=== PATIENT | male | born 1975 | race Two or more races ===

== ENCOUNTER 2018-03-11 14:06 | Inpatient (IN) | payer MEDICAID ==
[2018-03-11 14:06] VITALS: BMI 27.3
--- NOTE | 2018-03-11 16:00 | C.PDOC ---
History Of Present Illness 43 year old male presents to the ED with mother requesting alcohol detox. Patient denies any past medical history and offers no medical complaints at this time. Time Seen by Provider: 03/11/18 15:50 Chief Complaint (Nursing): Substance Abuse History Per: Patient History/Exam Limitations: no limitations Onset/Duration Of Symptoms: Hrs Current Symptoms Are (Timing): Still Present Modifying Factor(s): Alcohol Involuntary Hold By: None Recent travel outside of the [place]: No Additional History Per: Patient Past Medical History Reviewed: Historical Data, Nursing Documentation, Vital Signs Vital Signs: Last Vital Signs Temp 98.7 F 03/11/18 14:50 Pulse 97 H 03/11/18 14:50 Resp 18 03/11/18 14:50 BP 132/93 H 03/11/18 14:50 Pulse Ox 96 03/11/18 14:50 - Medical History PMH: HTN Denies: Anxiety, Bipolar Disorder, Depression, Personality Disorder, Post Traumatic Stress Disorder, Schizophrenia Surgical History: No Surg Hx Denies: Pacemaker - [employer] [facility] Procedures INJECT/INFUSE NEC (03/09/14) Family History: States: Unknown Family Hx - Social History Hx Alcohol Use: Yes Hx Substance Use: No - Immunization History Hx Tetanus Toxoid Vaccination: No Hx Influenza Vaccination: No Hx Pneumococcal Vaccination: No Review Of Systems Psych: Positive for: Other (alcohol detox ) Physical Exam - Physical Exam Appears: Non-toxic, No Acute Distress, Other (loud and belligerant) Skin: Normal Color, Warm, Dry Oral Mucosa: Moist Neck: Supple Chest: Symmetrical, No Deformity, No Tenderness Cardiovascular: Rhythm Regular, No Murmur Respiratory: Normal Breath Sounds, No Rales, No Rhonchi, No Wheezing Gastrointestinal/Abdominal: Soft, No Tenderness, No Guarding, No Rebound Extremity: Normal ROM Neurological/Psych: Oriented x3, Normal Speech, Normal Cognition ED Course And Treatment - Laboratory Results Result Diagrams: 03/11/18 16:28 03/11/18 16:28 O2 Sat by Pulse Oximetry: 96 (on RA ) Pulse Ox Interpretation: Normal Medical Decision Making Medical Decision Making: Progress: Bloodwork and urinalysis ordered and reviewed. Disposition Counseled Patient/Family Regarding: Studies Performed, Diagnosis - Disposition Disposition: HOSPITALIZED Disposition Time: 17:34 Condition: STABLE Forms: [employer] (Malaysian) - Clinical Impression Clinical Impression: Drug abuse, Alcohol abuse - Scribe Statement The provider has reviewed the documentation as recorded by the Scribe (Leticia Henley) Provider Attestation: All medical record entries made by the Scribe were at my direction and personally dictated by me. I have reviewed the chart and agree that the record accurately reflects my personal performance of the history, physical exam, medical decision making, and the department course for this patient. I have also personally directed, reviewed, and agree with the discharge instructions and disposition. Decision To Admit - Pt Status Changed To: Hospital Disposition Of: Inpatient - Admit Certification Admit to Inpatient:: After my assessment, the patient will require hospitalization for at least two midnights. This is because of the severity of symptoms shown, intensity of services needed, and/or the medical risk in this patient being treated as an outpatient. - InPatient: Physician Admission Certification: I certify that this patient requires 2 or more midnights of care for the following reason:: needs inpatient detox - . Bed Request Type: Detox Patient Diagnosis: Drug abuse, Alcohol abuse
[2018-03-11 16:32] LABS: BASO % 0.3 % (0.0-2.0); EOS % 0.8 % (0.0-4.0); HEMOGLOBIN 13.2 g/dL (12.0-18.0); LYMPH # 1.8 K/uL (1.0-4.3); LYMPH % 40.9 % (20.0-40.0); MEAN CELL VOLUME 88.4 fL (80.0-94.0); MEAN CORPUSCULAR HEMOGLOBIN 29.5 pg (27.0-31.0); MEAN CORPUSCULAR HGB CONC 33.4 g/dL (33.0-37.0); MONO # 0.2 K/uL (0.0-0.8); MONO % 5.2 % (0.0-10.0); NEUT # 2.3 K/uL (1.8-7.0); NEUT % 52.8 % (50.0-75.0); NRBC % 0.2 % (0.0-2.0); RBC 4.48 Mil/uL (4.40-5.90); RED CELL DISTRIBUTION WIDTH 16.3 % (11.5-14.5); WHITE BLOOD COUNT 4.4 K/uL (4.8-10.8)
[2018-03-11 16:38] LABS: SQUAMOUS EPITHIAL 5 /hpf (0-5); URINE BACTERIA MANY (<OCC); URINE BILIRUBIN NEGATIVE (NEGATIVE); URINE BLOOD 1+ (NEGATIVE); URINE CLARITY Hazy (Clear); URINE COLOR Yellow (YELLOW); URINE GLUCOSE (UA) NORMAL (Normal); URINE LEUKOCYTE ESTERASE 2+ Leu/uL (Negative); URINE PROTEIN NEGATIVE (NEGATIVE); URINE UROBILINOGEN NORMAL mg/dL (0.2-1.0)
[2018-03-11 16:50] LABS: BARBITURATES, UR NEGATIVE (NEGATIVE); BENZODIAZEPINES, UR NEGATIVE (NEGATIVE); OPIATES, UR NEGATIVE (NEGATIVE)
[2018-03-11 16:56] LABS: PHENCYCLIDINE, UR POSITIVE (NEGATIVE)
[2018-03-11 16:59] LABS: ALB/GLOB RATIO 1.5 (1.0-2.1); ALBUMIN 4.3 g/dL (3.5-5.0); ALT/SGPT 38 U/L (21-72); AST/SGOT 84 U/L (17-59); BLOOD UREA NITROGEN 10 mg/dL (9-20); CALCIUM 8.3 mg/dl (8.6-10.4); GFR NON-AFRICAN AMERICAN > 60
--- NOTE | 2018-03-11 19:10 | PCM.BM ---
<Adrian Bales - Last Filed: 03/11/18 20:46> Treatment Plan Problems - Problems identified on initial assessmt anxiety r/t substance abuse Date Initiated: 03/11/18 Time Initiated: 19:09 Assessment reference: NA Status: Active altered health maintenance Date Initiated: 03/11/18 Time Initiated: 20:49 Assessment reference: NA Status: Active defensive coping Date Initiated: 03/11/18 Time Initiated: 20:49 Assessment reference: NA Status: Active knowledge deficits r/t alcohol use Date Initiated: 03/11/18 Time Initiated: 20:50 Assessment reference: NA Status: Active Treatment assets and liabiliti Patient Assests: cooperative, ADL independent, good support system, cognitively intact Patient Liabilities: substance abuse - Milieu Protocol Maintain good personal hygiene: daily Encourage regular showers, daily Remind patient to perform daily oral care, daily Assist patient to perform ADL's Maintain personal safety: every shift Educate patient to report safety concerns to staff, every shift Monitor environment for contraband/sharps Medication safety: Monitor for expected outcome, potential side effects: every shift, Assess barriers to learning: every shift, Assess readiness for medication education: every shift <Tyson Herrera - Last Filed: 03/12/18 15:34> - Diagnosis (1) Alcohol use disorder, severe, dependence Status: Acute Interventions: 03/12/18 15:34 * Assess 7x/week regarding severity of withdrawal * Educate regarding risks, benefits, side effects and alternatives of medications * Use Motivational Interviewing for abstinence * Use CBT for relapse prevention * Medication management for withdrawal symptoms * Encourage medication assisted treatment (2) Cannabis use disorder, mild, abuse Status: Acute Interventions: 03/12/18 15:34 * Assess 7x/week regarding severity of withdrawal * Educate regarding risks, benefits, side effects and alternatives of medications * Use Motivational Interviewing for abstinence * Use CBT for relapse prevention * Medication management for withdrawal symptoms * Encourage medication assisted treatment <Jamila Reese - Last Filed: 03/13/18 14:52> Treatment Plan Problems - Problems identified on initial assessmt anxiety r/t substance abuse Date Initiated: 03/11/18 Time Initiated: 19:09 Assessment reference: NA Status: Active altered health maintenance Date Initiated: 03/11/18 Time Initiated: 20:49 Assessment reference: NA Status: Active defensive coping Date Initiated: 03/11/18 Time Initiated: 20:49 Assessment reference: NA Status: Active knowledge deficits r/t alcohol use Date Initiated: 03/11/18 Time Initiated: 20:50 Assessment reference: NA Status: Active potential for alcohol withdrawal Date Initiated: 03/11/18 Time Initiated: 19:09 Assessment reference: NA Status: Active Family Contact Family involvement: Family/SO is involved Family contact name: girlfriend Family contacted how many times per week?: 1 - Goals for Treatment Patient goals for treatment: Complete detox and transition to a short-term rehab. Discharge/Continuing Care - Education Needs Education Needs: Patient Medication, Patient Diagnosis/Disease Process, Patient Coping Skills, Patient Anger Management skills, Patient Placement options, Patient Community resources, Significant Other Diagnosis/Disease Process, Significant Other Community resources - Discharge Discharge Criteria: Free of agitation, No longer exhibiting s/s of withdrawal, Reduction of target symptoms Discharge to:: Substance Abuse Rehab - Treatment Team Participation Patient/Family/SO Statement: 03/13/18 14:51 "I wanna got To [facility] if I COULD..." Discussed with Family/SO: No Was Patient/Family/SO present at Treatment Team Meeting: Yes
[2018-03-12] MEDS: Multiple Vitamins Tab PO SCH (11:28)
--- NOTE | 2018-03-12 15:39 | PCM.PSYCH ---
Initial Psychiatric Evaluation - Initial Psychiatric Evaluation Type of Admission: Voluntary Legal Status: Capacity Chief Complaint (in patient's own words): I need help from his substance use. History of Present Illness and Precipitating Events: Patient is a 43 years old, single, unemployed, -[place] male with no previous psychiatric history was admitted due to withdrawing from alcohol and cannabis. Alcohol: Patient started drinking alcohol at 25 years of age increased gradually. From age 35 patient started drinking on daily basis, was drinking 2-3 pints of beer daily. His last drink of alcohol was yesterday. Denied any prev ious detox or rehabs. Cannabis: Started at 17 years of age, using once a month. Last used one month ago. Urine drug screen was also positive for PCP. Patient reported he used only once. Next Denied use of any other drugs including cocaine and heroin. Denied smoking cigarettes. Patient has history of left leg surgery. was born in [place], has 2 years of college. Patient is working. Never and has 118 years old daughter who lives with her mother. Patient lives alone. His height is 5 feet 9 inches and weight is 175 pounds. Current Medications: Active Medications Generic Name Dose Route Start Last Admin Trade Name Freq PRN Reason Stop Dose Admin Al Hydrox/Mg Hydrox/Simethicone 30 ml 03/12/18 10:11 Maalox 30 Ml PO TID PRN Indigestion / Heartburn Ciprofloxacin 500 mg 03/12/18 18:00 Cipro PO 03/17/18 10:00 BID JANKI Protocol Clonidine HCl 0.1 mg 03/11/18 20:29 03/12/18 09:09 Catapres PO 0.1 mg Q6 PRN Administration Symptoms of alcohol withdrawl Dicyclomine HCl 10 mg 03/11/18 18:00 Bentyl PO Q6 PRN Muscle spasm Folic Acid 1 mg 03/12/18 10:30 03/12/18 11:27 Folic Acid PO 1 mg DAILY JANKI Administration Gabapentin 400 mg 03/12/18 14:00 03/12/18 13:26 Neurontin PO 400 mg TID JANKI Administration Hydroxyzine HCl 50 mg 03/11/18 18:00 03/11/18 18:45 Atarax PO 50 mg Q6 PRN Administration Anxiety Ibuprofen 600 mg 03/11/18 17:59 Motrin Tab PO Q6 PRN Pain, moderate (4-7) Lorazepam 1 mg 03/11/18 18:40 03/12/18 09:10 Ativan PO 1 mg Q6 PRN Administration alcohol withdrawal Multivitamins 1 tab 03/12/18 10:30 03/12/18 11:28 Hexavitamin PO 1 tab DAILY JANKI Administration Ondansetron HCl 4 mg 03/11/18 18:02 Zofran Tab PO Q6 PRN Nausea/Vomiting Thiamine HCl 100 mg 03/12/18 10:30 03/12/18 11:27 Vitamin B1 Tab PO 100 mg DAILY AJNKI Administration Trazodone HCl 50 mg 03/11/18 17:58 03/11/18 23:27 Desyrel PO 50 mg HS PRN Administration Insomnia Past Psychiatric History - Past Psychiatric History Previous Treatment History: None History of Abuse: None reported History of ETOH/Drug Use: See HPI History of Family Illness: None reported Pertinent Medical Hx (Current Medical&Sleep Prob, Allergies): Allergies Allergy/AdvReac Type Severity Reaction Status Date / Time No Known Allergies Allergy Verified 03/11/18 14:53 amLODIPine [Norvasc] 10 mg PO DAILY 09/25/17 Hypertension Review of Systems - Psychiatric Psychiatric: As Per HPI, Anxiety Mental Status Examination - Personal Presentation Personal Presentation: Looks stated age - Affect Affect: Other (Appropriate) - Motor Activity Motor Activity: Calm - Reliability in Providing Information Reliability in Providing Information: Fair - Speech Speech: Organized - Mood Mood: Anxious - Formal Thought Process Formal Thought Process: No Impairment - Hallucinations/Delusions Hallucinations: Other (None reported) Delusions: Other - Obsessions/Compulsions Obsessions: None Compulsions: None - Cognitive Functions Orientation: Person, Place - Risk Risk: Withdrawal, Diminished functioning - Strength & Assets Inventory Strength & Assets Inventory: Cooperative - Limitations Limitations: Living alone DSM 5 DX - DSM 5 DSM 5 Diagnosis: Alcohol withdrawal. Alcohol use disorder severe. Cannabis use disorder mild - Recommended/Plan of Treatment Treatment Recommendations and Plan of Treatment: Patient education. Supportive therapy. CBT for relapse prevention. MD for abstinence. We will start Ativan taper for alcohol withdrawal symptoms. Other when necessary medications. Ciprofloxacin for UTI. Patient wants to go to [facility] for follow-up care after discharge from the hospital. Projected ELOS: 4-5 days - Smoking Cessation Smoking Cessation Initiated: No Reason for not providing: Patient doesn't smoke cigarettes
[2018-03-12] MEDS: Aluminum Hydroxide/Magnesium Hydroxide Susp (30 mL) PO PRN (20:04)
[2018-03-13] MEDS: Multiple Vitamins Tab PO SCH (08:59)
[2018-03-13] MEDS: Aluminum Hydroxide/Magnesium Hydroxide Susp (30 mL) PO PRN ×2 (09:23→17:51)
--- NOTE | 2018-03-13 15:56 | PCM.PYCHPN ---
Psychiatric Progress Note - Psychiatric Progress Note Patient seen today, length of contact: 15 minutes Patient Chief Complaint: I'm feeling little better. Problems Identified/Issues Discussed: Patient seen, chart reviewed, case discussed with the staff. Issues related to illness and treatment were discussed with the patient and staff. Reported compliant with treatment with no adverse effect. Calm and cooperative. Reported feeling little better. Still has some withdrawal symptoms including shaking, sweating, body aches and headache. Awake, alert and oriented x3. Mood reported as anxious. Affect appropriate. Memory intact. Aftercare discussed with the patient. Denied any delusions, auditory or visual hallucinations, suicidal ideations or homicidal ideations at the time of evaluation. Medical Problems: Hypertension Diagnostic Results: Reviewed DSM 5 Symptoms Update: Some improvement with treatment. Medication Change: No Medical Record Reviewed: Yes Mental Status Examination - Cognitive Function Orientation: Person, Place, Situation, Time Memory: Intact Attention: WNL Concentration: WNL Association: [facility] Fund of Knowledge: [facility] Decription of patient's judgement and insights: Fair - Mood Mood: Anxious (Less than before) - Affect Affect: Other (Appropriate) - Speech Speech: Appropriate - Formal Thought Process Formal Thought Process: No Impairment Psychotic Thoughts and Behaviors: None - Suicidal Ideation Suicidal Ideation: No - Homicidal Ideation Homicidal Ideation: No Goal/Treatment Plan - Goal/Treatment Plan Need for Continued Stay: Remain at risks for inpatient hospitalization, Discharge may exacerbated symptoms, Severe functional impairment Progress Toward Problem(s) and Goals/Treatment Plan: Patient education. Supportive therapy. CBT for relapse prevention. [place] for abstinence. Continue treatment as before. Patient wants to go to [facility] for follow-up care after discharge from the hospital. Estimated Date of D/C: 03/15/18 - Smoking Cessation Smoking Cessation Initiated: No
[2018-03-13] MEDS ORDERED: Magnesium Hydroxide Susp 30 ml UD PO ONE (18:06)
--- NOTE | 2018-03-13 21:06 | RAD ---
HISTORY: rehab placement COMPARISON: No prior. TECHNIQUE: Chest PA and lateral FINDINGS: LUNGS: No focal consolidation. Please note that chest x-ray has limited sensitivity for the detection of pulmonary masses. PLEURA: No significant pleural effusion identified. No definite pneumothorax . CARDIOVASCULAR: Heart size appears within normal limits. No atherosclerotic calcification present. OSSEOUS STRUCTURES: No acute osseous abnormality identified. VISUALIZED UPPER ABDOMEN: Unremarkable. OTHER FINDINGS: None. IMPRESSION: No focal consolidation.
[2018-03-14] MEDS: Aluminum Hydroxide/Magnesium Hydroxide Susp (30 mL) PO PRN (08:58)
[2018-03-14] MEDS: Multiple Vitamins Tab PO SCH (09:18)
[2018-03-14] MEDS: Potassium Chloride 20 mEq ER Tab PO SCH (12:18)
[2018-03-14] MEDS ORDERED: Magnesium Hydroxide Susp 30 ml UD PO PRN (17:01)
--- NOTE | 2018-03-14 22:35 | PCM.PYCHPN ---
Psychiatric Progress Note - Psychiatric Progress Note Patient seen today, length of contact: 15 minutes Patient Chief Complaint: I'm feeling better. Problems Identified/Issues Discussed: Patient seen, chart reviewed, case discussed with the staff. Issues related to illness and treatment were discussed with the patient and staff. Reported compliant with treatment with no adverse effect. Calm and cooperative. Reported feeling better. His serum potassium was low. Patient received 40 M EQ of K-Dur. Will repeat potassium in the morning. Awake, alert and oriented x3. Mood reported as anxious. Affect appropriate. Memory intact. Aftercare discussed with the patient. Denied any delusions, auditory or visual hallucinations, suicidal ideations or homicidal ideations at the time of evaluation. Medical Problems: Hypertension Diagnostic Results: Reviewed DSM 5 Symptoms Update: Improving with treatment. Medication Change: No Medical Record Reviewed: Yes Mental Status Examination - Cognitive Function Orientation: Person, Place, Situation, Time Memory: Intact Attention: WNL Concentration: WNL Association: WNL Fund of Knowledge: [facility]N Decription of patient's judgement and insights: Fair - Mood Mood: Anxious (Much less than before) - Affect Affect: Other (Appropriate) - Speech Speech: Appropriate - Formal Thought Process Formal Thought Process: No Impairment Psychotic Thoughts and Behaviors: None - Suicidal Ideation Suicidal Ideation: No - Homicidal Ideation Homicidal Ideation: No Goal/Treatment Plan - Goal/Treatment Plan Need for Continued Stay: Remain at risks for inpatient hospitalization, Discharge may exacerbated symptoms, Severe functional impairment Progress Toward Problem(s) and Goals/Treatment Plan: Patient education. Supportive therapy. CBT for relapse prevention. [place] for abstinence. Continue treatment as before. Patient wants to go to [facility] for follow-up care after discharge from the hospital. Estimated Date of D/C: 03/15/18 - Smoking Cessation Smoking Cessation Initiated: No
[2018-03-15] MEDS: Multiple Vitamins Tab PO SCH (09:29)
[2018-03-15] MEDS: Potassium Chloride 20 mEq ER Tab PO SCH (09:30)
[2018-03-15] MEDS: Aluminum Hydroxide/Magnesium Hydroxide Susp (30 mL) PO PRN ×2 (10:31→18:18)
--- NOTE | 2018-03-16 08:47 | PCM.PYCHDC ---
Mental Status Examination - Mental Status Examination Orientation: Person Discharge Summary - Discharge Note Laboratory Data: Abnormal Lab Results 03/15/18 09:31 Potassium 3.8 Consultations:: List each consultation separately and include: 1. Reason for request. 2. Findings. 3. Follow-up Summary of Hospital Course include:: 1. Description of specific treatment plan utilized for patients during their course of treatmen. 2. Summarize the time- course for resolution of acute symptoms and/or regressed behaviors. 3. Describe issues identified and worked on during hospitalization. 4. Describe medication utilized. 5. Describe medical problems identified and treated. 6. Reassessment of suicide risk Summary of Hospital Course: He will go to [facility]. - Final Diagnosis (DSM 5) Condition upon Discharge: STABLE Disposition: HOME/ ROUTINE Prescriptions/Medication Reconciliation: amLODIPine [Norvasc] 10 mg PO DAILY #30 tab Ciprofloxacin [Cipro] 500 mg PO BID #5 tab Gabapentin [Neurontin] 400 mg PO TID #90 cap traZODone [Desyrel] 50 mg PO HS PRN #30 tab PRN Reason: Insomnia
[2018-03-16] MEDS: Multiple Vitamins Tab PO SCH (09:13)
[2018-03-16] MEDS: Aluminum Hydroxide/Magnesium Hydroxide Susp (30 mL) PO PRN (10:39)
[2018-03-16 11:03] VITALS: BP 133/90; PULSE 90; RESP 20; TEMP 97.7; O2SAT 100
== END 2018-03-16 10:45 | disposition home or self-care (01) | DRG 750 ==
LOC: C.ER 14:06 → C.7D 17:36
PROVIDERS: ADMIT Psychiatry & Neurology Psychiatry; ATTEND Psychiatry & Neurology Psychiatry
PROC: HZ2ZZZZ Detoxification Services for Substance Abuse Treatment (ICD-10-PCS; principal; 2018-03-11)
PROC: HZ59ZZZ Individual Psychotherapy for Substance Abuse Treatment, Supportive (ICD-10-PCS; 2018-03-11)
PROC: HZ46ZZZ Group Counseling for Substance Abuse Treatment, Psychoeducation (ICD-10-PCS; 2018-03-11)
DX: F10.230 Alcohol dependence with withdrawal, uncomplicated (principal); F12.10 Cannabis abuse, uncomplicated; N39.0 Urinary tract infection, site not specified; F41.9 Anxiety disorder, unspecified; I10 Essential (primary) hypertension